=== PATIENT | female | born 1990 | race Caucasian/White ===

== ENCOUNTER → 2020-04-07 13:46 | Outpatient (CLI) | payer BC, SELFPAY ==
--- NOTE | ~2020-04-07 | US_ITS ---
EXAMINATION: US transvaginal EXAM DATE: 04/07/2020 14:13 INDICATION: Check ovaries for PCOS. Heavy periods, weight gain. TECHNIQUE: Pelvic transvaginal sonogram was performed. There are multiple grayscale and Doppler imag es available for interpretation. There is no prior study for comparison. FINDINGS: Uterus measures 5.6 x 2.4 x 4.8 cm, and is morphologically normal. Endometrial stripe cher sures 9 mm, within normal limits. There is no free pelvic fluid. Right adnexa: The ovary measures 2.2 x 1.4 x 2.6 cm and is morphologically normal. Ovarian vascular f low confirmed. Left adnexa: The ovary measures 1.2 x 1.4 x 1.3 cm and is morphologically normal. Ovarian vascular fl ow confirmed. IMPRESSION: 1. Sonographically normal ovaries, no evidence polycystic ovarian disease. Reviewed, dictated and finalized at location A.
== END ==
PROVIDERS: Visit Provider Obstetrics & Gynecology Gynecology
DX: E28.2 Polycystic ovarian syndrome (principal)
CPT/HCPCS: 76830